=== PATIENT | female | born 1995 | race Caucasian/White ===

== ENCOUNTER 2023-02-19 18:14 | Inpatient (IN) | payer OTHER ==
[2023-02-19 19:13] LABS: INR 1.03 (0.83-1.09); PROTHROMBIN TIME (PATIENT) 11.9 SEC (9.7-13.0)
[2023-02-19 19:16] LABS: ACTIVATED PTT 31.1 SECONDS (25.2-36.5)
[2023-02-19 20:05] LABS: HEMATOCRIT 37.8 % (32.4-45.2); HEMOGLOBIN 13.1 G/dL (10.7-15.3); MCH 32.9 pg (25.7-33.7); MCHC 34.6 g/dl (32.0-36.0); MEAN CELL VOLUME 95.1 fl (80-96); MEAN PLT VOLUME 11.5 fl (7.5-11.1); RBC 3.98 10^6/uL (3.60-5.2); RDW 13.5 % (11.6-15.6); WHITE BLOOD COUNT 7.5 10^3/uL (4.0-10.8)
[2023-02-19 20:22] LABS: PLATELET COUNT 3.5 10^3/uL (134-434)
[2023-02-19 20:24] LABS: BILIRUBIN,TOTAL 0.2 mg/dL (0.2-1); BLOOD UREA NITROGEN 13.4 mg/dL (7-18); CALCIUM 8.9 mg/dL (8.5-10.1); CREATININE 0.7 mg/dL (0.55-1.3); TOT PROT 7.6 g/dl (6.4-8.2)
[2023-02-19 20:30] LABS: EPITHELIAL CELLS FEW /hpf
[2023-02-19 20:40] LABS: ANISOCYTOSIS 1+
[2023-02-19 20:41] LABS: PLATELET ESTIMATE DECREASED
[2023-02-19] MEDS ORDERED: DEXAMETHASONE SOD PHOSPHATE 10 MG/1 ML VIAL IVPB ONE (21:25)
[2023-02-19] MEDS ORDERED: DEXAMETHASONE SOD PHOSPHATE/PF 10 MG/ML SDV ONE ×2 (21:28→21:45)
[2023-02-19] MEDS ORDERED: DEXAMETHASONE SOD PHOSPHATE 20 MG/5 ML VIAL IVPB ONE (21:42)
[2023-02-19] MEDS ORDERED: IMMUNE GLOBULIN (IgG-GAMMAKED) 10 GM VIAL IVPB ONE (22:54)
[2023-02-19] MEDS ORDERED: ACETAMINOPHEN 1000 MG/100 ML BAG IVPB ONE (23:00)
[2023-02-19] MEDS ORDERED: IMMUN GLOB G(IGG)/PRO/IGA 0-50 600 ML, IMMUN GLOB G(IGG)/PRO/IGA 0-50 100 ML IVPB SCH (23:45)
[2023-02-20 00:23] VITALS: BMI 37.4
[2023-02-20 06:52] LABS: POTASSIUM 4.2 mmol/L (3.5-5.1)
[2023-02-20 06:53] LABS: CALCIUM 8.3 mg/dL (8.5-10.1)
[2023-02-20 06:54] LABS: BLOOD UREA NITROGEN 10.9 mg/dL (7-18)
[2023-02-20 06:57] LABS: CREATININE 0.7 mg/dL (0.55-1.3)
[2023-02-20 07:25] LABS: HEMATOCRIT 36.5 % (32.4-45.2); HEMOGLOBIN 12.2 GM/dL (10.7-15.3); MCH 31.3 pg (25.7-33.7); MCHC 33.4 g/dl (32.0-36.0); MEAN CELL VOLUME 93.8 fl (80-96); MEAN PLT VOLUME 9.5 fl (7.5-11.1); RBC 3.89 M/mm3 (3.60-5.2); RDW 13.3 % (11.6-15.6); WHITE BLOOD COUNT 5.7 K/mm3 (4.0-10.0)
[2023-02-20 07:26] LABS: PLATELET COUNT 4 10^3/uL (134-434)
[2023-02-20 07:50] LABS: HIV INTERPRETATION NEGATIVE (NEGATIVE)
[2023-02-20] MEDS ORDERED: IMMUN GLOB G(IGG)/PRO/IGA 0-50 400 ML, IMMUN GLOB G(IGG)/PRO/IGA 0-50 200 ML, IMMUN GLOB G IVPB ONE (09:15)
[2023-02-20 09:47] LABS: ANISOCYTOSIS 1+; PLATELET ESTIMATE DECREASED
[2023-02-20] MEDS ORDERED: DEXAMETHASONE SOD PHOSPHATE 10 MG/1 ML VIAL IVPB SCH (10:00)
[2023-02-20] MEDS ORDERED: PANTOPRAZOLE 40 MG TABLET PO SCH (10:00)
[2023-02-20 12:22] LABS: HEMATOCRIT 37.1 % (32.4-45.2); HEMOGLOBIN 12.7 G/dL (10.7-15.3); MCH 32.5 pg (25.7-33.7); MCHC 34.3 g/dl (32.0-36.0); MEAN CELL VOLUME 94.9 fl (80-96); MEAN PLT VOLUME 8.9 fl (7.5-11.1); RBC 3.91 10^6/uL (3.60-5.2); RDW 13.5 % (11.6-15.6); WHITE BLOOD COUNT 10.5 10^3/uL (4.0-10.8)
[2023-02-20 13:42] LABS: PLATELET COUNT 49 10^3/uL (134-434)
[2023-02-20 14:37] LABS: POTASSIUM 3.6 mmol/L (3.5-5.1)
[2023-02-20 14:39] LABS: BLOOD UREA NITROGEN 11.1 mg/dL (7-18); CALCIUM 8.4 mg/dL (8.5-10.1); MAGNESIUM 1.9 mg/dL (1.8-2.4)
[2023-02-20 14:40] LABS: ALBUMIN 3.8 g/dl (3.4-5.0)
[2023-02-20 14:43] LABS: CREATININE 0.6 mg/dL (0.55-1.3)
[2023-02-20 14:44] LABS: BILIRUBIN,TOTAL 0.4 mg/dL (0.2-1); TOT PROT 9.2 g/dl (6.4-8.2)
[2023-02-20 15:32] LABS: HIV INTERPRETATION NEGATIVE (NEGATIVE)
[2023-02-20 15:42] LABS: PLATELET ESTIMATE SLT DECREASE
[2023-02-20 21:08] LABS: COCAINE, UR NEGATIVE (NEGATIVE); OPIATES, URI NEGATIVE (NEGATIVE); URINE BARBITURATES NEGATIVE (NEGATIVE)
[2023-02-20 21:09] LABS: METHADONE, UR NEGATIVE (NEGATIVE); PHENCYCLIDINE,URINE NEGATIVE (NEGATIVE); URINE BENZODIAZEPINES NEGATIVE (NEGATIVE)
[2023-02-20 21:15] LABS: URINE AMPHETAMINES NEGATIVE (NEGATIVE)
[2023-02-20] MEDS: MUPIROCIN 2% TOPICAL OINTMENT FOR DECOLONIZATION NS SCH (21:50)
[2023-02-20] MEDS: CHLORHEXIDINE GLUCONATE 4% CLEANSER FOR DECOLONIZATION TP SCH ×2 (21:51→23:28)
[2023-02-21 07:19] LABS: INR 1.1 (0.83-1.09); PROTHROMBIN TIME (PATIENT) 12.7 SEC (9.7-13.0)
[2023-02-21 07:56] LABS: BASO % 0.2 % (0-2.0); HEMATOCRIT 32.6 % (32.4-45.2); HEMOGLOBIN 11.3 GM/dL (10.7-15.3); LYMPH % 9.5 % (8-40); MCH 32.3 pg (25.7-33.7); MCHC 34.6 g/dl (32.0-36.0); MEAN CELL VOLUME 93.5 fl (80-96); MEAN PLT VOLUME 10.5 fl (7.5-11.1); NEUT % 85.3 % (42.8-82.8); PLATELET COUNT 97 10^3/uL (134-434); RBC 3.49 M/mm3 (3.60-5.2); RDW 13.1 % (11.6-15.6); WHITE BLOOD COUNT 8.9 K/mm3 (4.0-10.0)
[2023-02-21 08:00] LABS: ALBUMIN 3.3 g/dl (3.4-5.0); CALCIUM 8.4 mg/dL (8.5-10.1)
[2023-02-21 08:01] LABS: BLOOD UREA NITROGEN 15.1 mg/dL (7-18)
[2023-02-21 08:03] LABS: CREATININE 0.7 mg/dL (0.55-1.3); PHOSPHOROUS 4.2 mg/dL (2.5-4.9)
[2023-02-21 08:05] LABS: BILIRUBIN,TOTAL 0.4 mg/dL (0.2-1); TOT PROT 9.7 g/dl (6.4-8.2)
[2023-02-21] MEDS ORDERED: ACETAMINOPHEN 325 MG TABLET (FP) PO PRN ×2 (09:09→16:00)
[2023-02-21] MEDS: MUPIROCIN 2% TOPICAL OINTMENT FOR DECOLONIZATION NS SCH (09:40)
[2023-02-21] MEDS ORDERED: DEXAMETHASONE SOD PHOSPHATE 10 MG/1 ML VIAL IVPB SCH (10:00)
[2023-02-21] MEDS ORDERED: PANTOPRAZOLE 40 MG TABLET PO SCH (10:00)
[2023-02-21 13:54] LABS: HIV INTERPRETATION NEGATIVE (NEGATIVE)
[2023-02-22 07:12] LABS: HEMATOCRIT 33.8 % (32.4-45.2); HEMOGLOBIN 11.4 GM/dL (10.7-15.3); LYMPH % 8.2 % (8-40); MCH 31.6 pg (25.7-33.7); MCHC 33.7 g/dl (32.0-36.0); MEAN CELL VOLUME 93.8 fl (80-96); MEAN PLT VOLUME 9.6 fl (7.5-11.1); MONO % 2.6 % (3.8-10.2); NEUT % 89.2 % (42.8-82.8); PLATELET COUNT 168 10^3/uL (134-434); RDW 13.2 % (11.6-15.6); WHITE BLOOD COUNT 8.5 K/mm3 (4.0-10.0)
[2023-02-22] MEDS ORDERED: PANTOPRAZOLE 40 MG TABLET PO SCH (10:00)
[2023-02-22] MEDS ORDERED: DEXAMETHASONE 4 MG TABLET (FP) PO SCH (12:00)
[2023-02-22 14:19] VITALS: BP 109/66; PULSE 74; RESP 20; TEMP 98.4
[2023-02-22 15:07] LABS: PARV B19 IGG 6.7 index (0.0-0.8); PARV B19 IGM 0.2 index (0.0-0.8)
[2023-02-22 16:08] LABS: DRVVT - 32.5 sec (0.0-47.0)
== END 2023-02-22 18:31 | disposition home or self-care (01) | DRG 661 ==
LOC: FER 18:14 → FM/S 23:30 → JICU 02-20 12:18 → OBSVTOIN 02-20 12:52 → J7W 02-21 15:59
PROVIDERS: ADMIT Internal Medicine; ATTEND Nurse Practitioner Family
PROC: 30233R1 Transfusion of Nonautologous Platelets into Peripheral Vein, Percutaneous Approach (ICD-10-PCS; principal; 2023-02-20)
DX: D69.3 Immune thrombocytopenic purpura (principal); R00.0 Tachycardia, unspecified
CPT/HCPCS: 0241U-QW; 36415; 36430; 71046-TC-FY; 76700-TC; 80048; 80053; 80307; 81003; 81015; 82607; 82746; 83010; 83605; 83615; 83735; 84100; 84155; 84165; 84436; 84443; 84479; 84703; 85025; 85027; 85384; 85397; 85610; 85613; 85651; 85730; 85732; 86038; 86140; 86308; 86704; 86705; 86706; 86707; 86747; 86803; 86850; 86900; 86901; 87040; 87340; 87350; 87389; 87517; 87536; 87799; 93005; 93306-TC; 99285-25; G0378; J1100; J1459; P9034

== ENCOUNTER 2024-02-09 13:02 | Emergency (ER) | payer OTHER ==
[2024-02-09 13:27] VITALS: BP 117/79; PULSE 80; RESP 16; TEMP 98.7; BMI 31.8
[2024-02-09] MEDS ORDERED: LIDOCAINE HCL 2% (20ML MULTI-DOSE VIAL) ONE (14:30)
[2024-02-09] MEDS ORDERED: ACETAMINOPHEN 500 MG TABLET (FP) ONE (14:31)
[2024-02-09] MEDS ORDERED: DIPHTH,PERTUSS(ACELL),TET 0.5 ML DISP.SYRIN IM ONE (14:31)
[2024-02-09] MEDS: ACETAMINOPHEN 500 MG TABLET (FP) PO ONE (14:36)
[2024-02-09] MEDS: DIPHTH,PERTUSS(ACELL),TET 0.5 ML DISP.SYRIN IM ONE (14:36)
[2024-02-09] MEDS: LIDOCAINE HCL 2% (50ML VIAL) PNB ONE (14:37)
[2024-02-09] MEDS ORDERED: BACITRACIN ZINC 15 GM TUBE TOPICAL OINTMENT ONE (14:57)
== END 2024-02-09 15:06 | disposition home or self-care (01) ==
LOC: JERFT 13:02
PROC: 3E0234Z Introduction of Serum, Toxoid and Vaccine into Muscle, Percutaneous Approach (ICD-10-PCS; principal; 2024-02-09)
DX: S61.210A Laceration without foreign body of right index finger without damage to nail, initial encounter (principal); W26.0XXA Contact with knife, initial encounter; Y93.G3 Activity, cooking and baking; Z23 Encounter for immunization
CPT/HCPCS: 90471; 90715; 99284-25